=== PATIENT | female | born 1975 ===

== ENCOUNTER 2022-12-27 06:45 | Inpatient (IN) | payer BC, OTHER ==
[~2022-12-27 06:45] MED LIST: Lactated Ringers 1,000 ML IV SCH; Sodium Chloride 0.9% 10 ML Syringe FLUSH PRN; Sodium Chloride 0.9% 10 ML Syringe FLUSH SCH
[2022-12-27] MEDS ORDERED: Bupivacaine 0.5% 30 ML SDV ONE (07:17)
[2022-12-27 07:31] LABS: ANION GAP 12.5 (5-15); BUN/CREATININE RATIO 21.1 (14-18); CALCIUM 9.1 mg/dL (8.5-10.1); CREATININE 0.9 mg/dL (0.55-1.02); EST CRCL DRUG DOSING (CG) 62.55 mL/min; POTASSIUM,K 3.5 mEq/L (3.5-5.1)
[2022-12-27] MEDS ORDERED: Scopolamine 1.5 MG Transdermal Patch TRDERM PRN (07:32)
[2022-12-27] MEDS ORDERED: Midazolam 1 MG/ML 2 ML SDV ONE ×3 (07:45→10:00)
[2022-12-27] MEDS ORDERED: Lidocaine 1% 5 ML VIAL ONE (07:45)
[2022-12-27] MEDS ORDERED: fentaNYL 100 MCG/2 ML SDV ONE ×2 (07:45→10:18)
[2022-12-27] MEDS ORDERED: Propofol 200 MG/20 ML SDV ONE ×5 (07:45→10:35)
[2022-12-27] MEDS ORDERED: ceFAZolin 2 GM Vial ONE ×2 (07:46→10:29)
[2022-12-27 07:48] LABS: BASOPHILS PERCENT AUTO 0.8 % (0.0-1.0); EOSINOPHILS ABSOLUTE AUTO 0.1 K/mm3 (0.0-0.4); EOSINOPHILS PERCENT AUTO 1.5 % (0.0-6.0); HEMATOCRIT 44.5 % (37.0-47.0); HEMOGLOBIN 14.5 gm/dl (12.0-16.0); IMMATURE GRAN PERCENT AUTO 0.3 % (0.0-0.4); LYMPHOCYTES ABSOLUTE AUTO 2.4 K/mm3 (1.0-4.8); LYMPHOCYTES PERCENT AUTO 36.8 % (24.0-44.0); MEAN CORPUSCULAR HEMOGLOBIN 30.7 pg (28.0-32.0); MEAN CORPUSCULAR HGB CONC 32.6 g/dl (32.0-36.0); MEAN CORPUSCULAR VOLUME 94.1 fl (83.0-99.0); MEAN PLATELET VOLUME 10.5 fl (9.4-12.3); MONOCYTES ABSOLUTE AUTO 0.5 K/mm3 (0.0-0.8); MONOCYTES PERCENT AUTO 7.8 % (0.0-8.0); NEUTROPHILS ABSOLUTE AUTO 3.5 K/mm3 (1.8-7.7); NEUTROPHILS PERCENT AUTO 52.8 % (41.0-71.0); PLATELET COUNT,PLT 214 K/mm3 (150-400); RED BLOOD CELL COUNT 4.73 M/mm3 (4.10-5.30); WHITE BLOOD CELL COUNT,WBC 6.63 K/mm3 (3.9-11.3)
[2022-12-27 07:49] LABS: BASOPHILS ABSOLUTE AUTO 0.1 K/mm3 (0.0-0.2); IMMATURE GRAN ABSOLUTE AUTO 0.02 K/mm3 (0.00-0.05)
[2022-12-27] MEDS ORDERED: Morphine PF 10 MG/10 ML SDV ONE (07:51)
[2022-12-27] MEDS ORDERED: Ondansetron 4 MG/2 ML SDV ONE ×2 (07:54→11:11)
[2022-12-27] MEDS ORDERED: ePHEDrine 50 MG/ML SDV ONE (08:09)
[2022-12-27] MEDS ORDERED: Dexamethasone 4 MG/ML 5 ML MDV ONE (08:10)
[2022-12-27] MEDS ORDERED: Lactated Ringers 1,000 ML ONE ×2 (08:18→09:18)
[2022-12-27] MEDS ORDERED: Ondansetron 4 MG/2 ML SDV IVPUSH PRN ×2 (08:20→11:06)
[2022-12-27] MEDS ORDERED: diphenhydrAMINE 50 MG/ML SDV IVPUSH PRN (08:20)
[2022-12-27] MEDS ORDERED: fentaNYL 100 MCG/2 ML SDV IVPUSH PRN (08:20)
[2022-12-27] MEDS ORDERED: Meperidine 50 MG/ML Vial IVPUSH PRN (08:20)
[2022-12-27] MEDS ORDERED: Ketamine 500 mg/10 ML MDV ONE (09:09)
[2022-12-27] MEDS ORDERED: Tranexamic Acid 1,000 MG/10 ML Vial ONE (09:15)
[2022-12-27] MEDS ORDERED: Lactated Ringers 1,000 ML IV ONE (10:30)
[2022-12-27] MEDS ORDERED: Acetaminophen/oxyCODONE 325-5 MG Tab PO PRN ×2 (11:06)
[2022-12-27] MEDS ORDERED: Morphine 2 MG/ML SYRINGE IVPUSH PRN (11:06)
[2022-12-27] MEDS ORDERED: Lactated Ringers 1,000 ML IV SCH (11:15)
[2022-12-27] MEDS ORDERED: HYDROmorphone 0.5 MG/0.5 ML Syringe IVPUSH PRN (11:17)
[2022-12-27] MEDS: Ketorolac 30 MG/ML SDV IVPUSH SCH ×2 (17:38→23:11)
[2022-12-27] MEDS ORDERED: Docusate Sodium 100 MG Cap PO SCH (21:00)
[2022-12-28] MEDS ORDERED: Metoclopramide 10 MG/2 ML SDV IVPUSH ONE (01:39)
[2022-12-28] MEDS ORDERED: diphenhydrAMINE 50 MG/ML SDV IVPUSH ONE (01:39)
[2022-12-28 02:06] LABS: HEMATOCRIT 30.8 % (37.0-47.0); MEAN CORPUSCULAR HEMOGLOBIN 31.8 pg (28.0-32.0); MEAN CORPUSCULAR HGB CONC 33.4 g/dl (32.0-36.0); MEAN CORPUSCULAR VOLUME 95.1 fl (83.0-99.0); MEAN PLATELET VOLUME 10.6 fl (9.4-12.3); PLATELET COUNT,PLT 149 K/mm3 (150-400); RED BLOOD CELL COUNT 3.24 M/mm3 (4.10-5.30)
[2022-12-28 02:09] LABS: HEMOGLOBIN 10.3 gm/dl (12.0-16.0)
[2022-12-28 03:19] LABS: ANION GAP 9.8 (5-15); BUN/CREATININE RATIO 18.8 (14-18); CALCIUM 8.1 mg/dL (8.5-10.1); CREATININE 0.8 mg/dL (0.55-1.02); EST CRCL DRUG DOSING (CG) 70.37 mL/min; POTASSIUM,K 3.8 mEq/L (3.5-5.1)
[2022-12-28] MEDS: Ketorolac 30 MG/ML SDV IVPUSH SCH (05:18)
[2022-12-28] MEDS ORDERED: Ibuprofen 600 MG Tab PO PRN (11:00)
== END 2022-12-28 12:45 | disposition home or self-care (01) | DRG 519 ==
LOC: JD.SDS 06:45 → JD.OB 10:38 → JD.SDS 10:39 → JD.OB 10:42
PROVIDERS: ADMIT Obstetrics & Gynecology; ATTEND Obstetrics & Gynecology
PROC: 0UT90ZL Resection of Uterus, Supracervical, Open Approach (ICD-10-PCS; principal; 2022-12-27)
PROC: 0UT70ZZ Resection of Bilateral Fallopian Tubes, Open Approach (ICD-10-PCS; 2022-12-27)
PROC: 0UT20ZZ Resection of Bilateral Ovaries, Open Approach (ICD-10-PCS; 2022-12-27)
PROC: 0DJD8ZZ Inspection of Lower Intestinal Tract, Via Natural or Artificial Opening Endoscopic (ICD-10-PCS; 2022-12-27)
PROC: 0UNF0ZZ Release Cul-de-sac, Open Approach (ICD-10-PCS; 2022-12-27)
DX: D25.9 Leiomyoma of uterus, unspecified (principal); D62 Acute posthemorrhagic anemia; C50.919 Malignant neoplasm of unspecified site of unspecified female breast; N93.8 Other specified abnormal uterine and vaginal bleeding; N73.6 Female pelvic peritoneal adhesions (postinfective); N80.129 Deep endometriosis of ovary, unspecified ovary; Z90.13 Acquired absence of bilateral breasts and nipples; Z98.890 Other specified postprocedural states; Z79.899 Other long term (current) drug therapy
CPT/HCPCS: 00840; 36415; 80048; 82947; 85025; 85027; 86850; 86900; 86901; 86922; 94761; A9270-GY; J0690; J1100; J1170; J1200; J1885; J2250; J2274; J2405; J2704; J2765; J3010; J3490; J7120